=== PATIENT | male | born 1990 | race Hispanic/Latino ===

== ENCOUNTER 2023-03-20 09:43 | Inpatient (IN) | payer OTHER ==
[~2023-03-20 09:43] MED LIST: Iopamidol 300 61% 100 ML VIAL FS ONE
[2023-03-20 10:19] LABS: Hematocrit 33.1 % (38.8-50.0); Hemoglobin 11.1 g/dL (13.5-17.5); Mean Corpuscular HGB CONC 33.5 g/dL (32.0-36.0); Mean Corpuscular Volume 92.5 fl (81.2-95.1); Mean Platelet Volume 12.8 fl (7.4-10.4); Platelet Count 66 10x3/uL (150-450); RBC Distribution Width 17.5 % (11.5-14.5); Red Blood Cell (RBC) Count 3.58 10x6/uL (4.32-5.72)
[2023-03-20 10:20] LABS: MDiff Complete? YES
[2023-03-20 10:26] LABS: ALT (SGPT) 33 U/L (8-55); AST (SGOT) 49 U/L (5-34); Albumin 2.9 g/dL (3.5-5.0); Alkaline Phosphatase 266 U/L (40-110); Anion Gap 12 mmol/L (10-20); BUN (Urea Nitrogen) 11 mg/dL (8.9-20.6); Bilirubin, Total 3.6 mg/dL (0.2-1.2); Calc. Creatinine Clearance 0 mL/min (70-130); Calcium 8.1 mg/dL (7.8-10.44); Carbon Dioxide 23 mmol/L (22-29); Chloride 109 mmol/L (98-107); Estimated GFR 124; Globulin 3.6 g/dL (2.4-3.5); Glucose 133 mg/dL (70-105); Potassium 3.9 mmol/L (3.5-5.1); Protein, Total 6.5 g/dL (6.0-8.3); Sodium 140 mmol/L (136-145)
[2023-03-20 10:35] LABS: Troponin I 0.018 ng/mL (< 0.028)
[2023-03-20 10:37] LABS: Acetaminophen Less than 10 mcg/mL (10.0-30.0); Alcohol Less than 10.0 mg/dL (Less than 10); Magnesium 1.8 mg/dL (1.6-2.6); Salicylate Less than 8.0 mg/dL (15.0-30.0)
[2023-03-20 11:07] LABS: Platelet Adequacy Comment Appears Decreased
[2023-03-20 11:16] LABS: Lymphocytes 24 % (21-51); Monocytes 28 % (0-10); Neutrophil 32 % (42-75); Reactive Lymphocytes 16 % (0-10)
[2023-03-20 11:26] LABS: Target Cells SLIGHT = 2-5 cells (100X) (0-1/hpf)
[2023-03-20 11:27] LABS: Burr Cells SLIGHT = 2-5 cells (100X) (0-1/hpf); Giant Platelets SLIGHT HPF (0-5)
[2023-03-20 12:10] LABS: Bilirubin 1+ (Negative); Blood, Urine 150 (Negative); Clarity Clear (Clear); Glucose, Urine (Dipstick) Normal (Negative); Ketone, Urine Negative (Negative); Leukocyte Negative (Negative); Nitrite Negative (Negative); Protein, Urine (Dipstick) 15 mg/dl (Neg-Trace); Specific Gravity, Urine 1.015 (1.005-1.030)
[2023-03-20 12:17] LABS: Amphetamine Not Detected (NotDetected); Barbiturates Screen Not Detected (NotDetected); Benzodiazepine Screen Detected (NotDetected); Cocaine Metabolite Screen Not Detected (NotDetected); Methadone Not Detected (NotDetected); Methamphetamine Not Detected (NotDetected); Opiate Screen Not Detected (NotDetected); Oxycodone Screen Not Detected (NotDetected); Phencyclidine (PCP) Not Detected (NotDetected); THC/Cannabinoid Screen Not Detected (NotDetected); Tricyclic Screen Not Detected (NotDetected)
[2023-03-20 12:27] LABS: Bacteria/HPF 1+ HPF (None Seen); CAUTI Indications for Culture Pelvic or flank pain; Squamous Epithelial 0-3 HPF (0-3)
[2023-03-20 12:28] LABS: Transitional Epithelial 0-3 HPF (None Seen); Urine Culture Reflex No No
[2023-03-20] MEDS ORDERED: Lactulose 20 GM (30 mL) UDCUP ONE ×3 (14:47→22:54)
[2023-03-20 15:07] LABS: Troponin I Less than 0.010 ng/mL (< 0.028)
[2023-03-20] MEDS ORDERED: Ondansetron PF 4 MG/2 ML Vial IVP PRN (15:41)
[2023-03-20] MEDS ORDERED: Acetaminophen 650 MG Suppository PR PRN (15:41)
[2023-03-20] MEDS ORDERED: Thiamine HCl 200 MG/2 ML VIAL ONE (15:46)
[2023-03-20 16:47] LABS: INR-International Normal Ratio 1.7; PTT 37.9 sec (22.0-33.0); Prothrombin Time 17.9 sec (9.5-12.1)
[2023-03-20 16:54] LABS: Troponin I Less than 0.010 ng/mL (< 0.028)
[2023-03-20] MEDS ORDERED: Famotidine/PF 20 mg/2ml Vial ONE (22:51)
[2023-03-21] MEDS ORDERED: Famotidine/PF 20 mg/2ml Vial SLOW IVP SCH (00:15)
[2023-03-21] MEDS ORDERED: Lactulose 20 GM (30 mL) UDCUP PO SCH (00:15)
[2023-03-21] MEDS ORDERED: Rifaximin 200 MG TAB PO SCH (00:15)
[2023-03-21] MEDS: Sodium Chloride 0.9% 1,000 ML IV SCH ×2 (01:18→12:37)
[2023-03-21 04:49] LABS: ALT (SGPT) 29 U/L (8-55); AST (SGOT) 44 U/L (5-34); Albumin 2.8 g/dL (3.5-5.0); Alkaline Phosphatase 200 U/L (40-110); Anion Gap 12 mmol/L (10-20); BUN (Urea Nitrogen) 9 mg/dL (8.9-20.6); Bilirubin, Total 4.5 mg/dL (0.2-1.2); Calc. Creatinine Clearance 204 mL/min (70-130); Calcium 8.3 mg/dL (7.8-10.44); Carbon Dioxide 21 mmol/L (22-29); Chloride 112 mmol/L (98-107); Estimated GFR 127; Globulin 3.6 g/dL (2.4-3.5); Glucose 106 mg/dL (70-105); Iron 42 ug/dL (65-175); Iron Binding Capacity, Total 171 mcg/dL (261-462); Potassium 3.6 mmol/L (3.5-5.1); Protein, Total 6.4 g/dL (6.0-8.3); Sodium 141 mmol/L (136-145)
[2023-03-21 05:01] LABS: Hematocrit 33.7 % (38.8-50.0); Hemoglobin 11.3 g/dL (13.5-17.5); Mean Corpuscular HGB CONC 33.5 g/dL (32.0-36.0); Mean Corpuscular Hemoglobin 30.7 pg (27.0-33.0); Mean Corpuscular Volume 91.6 fl (81.2-95.1); Mean Platelet Volume 10.8 fl (7.4-10.4); RBC Distribution Width 17.3 % (11.5-14.5); Red Blood Cell (RBC) Count 3.68 10x6/uL (4.32-5.72); White Blood Cell (WBC) Count 1.9 10x3/uL (3.5-10.5)
[2023-03-21 05:07] LABS: Ferritin 63.12 ng/mL (22-322)
[2023-03-21 05:11] LABS: Iron 42 ug/dL (65-175); Iron Binding Capacity, Total 168 mcg/dL (261-462)
[2023-03-21 05:32] LABS: Platelet Count 60 10x3/uL (150-450)
[2023-03-21 05:41] LABS: Band 2 % (5-11); Eosinophils 4 % (0-10); Lymphocytes 32 % (21-51); Monocytes 24 % (0-10); Reactive Lymphocytes 14 % (0-10)
[2023-03-21 05:42] LABS: Neutrophil 24 % (42-75)
[2023-03-21 06:01] LABS: Anisocytosis SLIGHT = 6-15 cells (100X) (0-5/hpf); Poikilocytosis SLIGHT = 6-15 cells (100X) (0-5/hpf); Schistocytes SLIGHT = 2-5 cells (100X) (0-1/hpf); Tear Drops SLIGHT = 2-5 cells (100X) (0-1/hpf)
[2023-03-21 06:02] LABS: Platelet Adequacy Comment Significant decrease
[2023-03-21 06:03] LABS: MDiff Complete? YES
[2023-03-21] MEDS ORDERED: Famotidine/PF 20 mg/2ml Vial ONE (08:50)
[2023-03-21] MEDS ORDERED: Lactulose 20 GM (30 mL) UDCUP ONE (08:53)
[2023-03-21] MEDS: Famotidine/PF 20 mg/2ml Vial SLOW IVP SCH ×2 (09:20→22:47)
[2023-03-21] MEDS: Lactulose 20 GM (30 mL) UDCUP PO SCH ×3 (09:20→22:46)
[2023-03-21] MEDS: Rifaximin 200 MG TAB PO SCH (09:21)
[2023-03-21 13:35] LABS: Immunoglob - G (Total IgG) 2260 mg/dL (540-1822)
[2023-03-21 13:36] LABS: Immunoglob - A (Total IgA) 710 mg/dL (63-484); Immunoglob - M (Total IgM) 137 mg/dL (22-240)
[2023-03-21 13:48] LABS: HBCM Index 0.08 S/CO (0-0.79); Hep A IgM AB Non-Reactive S/CO (NonReactive); Hep A IgM S/CO 0.13 S/CO (0-0.79); Hep C IgG Ab Non-Reactive S/CO (NonReactive); Hep C Index 0.13 S/CO (0-0.79); Hepatitis B Core IgM Abs Non-Reactive S/CO (NonReactive)
[2023-03-21 16:40] LABS: HBSAg Index 0.23 S/CO (0-0.99); Hep B Surf Ag Non-Reactive S/CO (NonReactive)
[2023-03-21 20:00] VITALS: BMI 28.7
[2023-03-21] MEDS ORDERED: FLU VACC QS2023-24(6MOS UP)/PF 60 MCG/0.5 ML SYRINGE IM ONE (20:15)
[2023-03-22] MEDS: Rifaximin 200 MG TAB PO SCH ×3 (00:51→21:39)
[2023-03-22] MEDS: Sodium Chloride 0.9% 1,000 ML IV SCH (00:52)
[2023-03-22 04:39] LABS: ALT (SGPT) 27 U/L (8-55); AST (SGOT) 47 U/L (5-34); Albumin 2.4 g/dL (3.5-5.0); Alkaline Phosphatase 144 U/L (40-110); Anion Gap 9 mmol/L (10-20); BUN (Urea Nitrogen) 7 mg/dL (8.9-20.6); Bilirubin, Total 3.3 mg/dL (0.2-1.2); Calc. Creatinine Clearance 190 mL/min (70-130); Calcium 7.7 mg/dL (7.8-10.44); Carbon Dioxide 22 mmol/L (22-29); Chloride 113 mmol/L (98-107); Estimated GFR 124; Globulin 2.8 g/dL (2.4-3.5); Glucose 92 mg/dL (70-105); Potassium 3.4 mmol/L (3.5-5.1); Protein, Total 5.2 g/dL (6.0-8.3); Sodium 141 mmol/L (136-145)
[2023-03-22 04:40] LABS: Platelet Count 58 10x3/uL (150-450)
[2023-03-22 04:41] LABS: #Eosinphils 0.1 10x3/uL (0.0-0.5); #Monocytes 0.6 10x3/uL (0.0-1.1); #Neutrophils 0.5 10x3/uL (1.5-8.4); %Basophils 1.9 % (0.0-2.0); %Eosinophils 3.3 % (0.0-6.0); %Lymphocytes 44.8 % (18.0-47.0); %Monocytes 27.1 % (0.0-10.0); %Neutrophils 22.9 % (40.0-75.0); Hematocrit 29.6 % (38.8-50.0); Hemoglobin 9.9 g/dL (13.5-17.5); Mean Corpuscular HGB CONC 33.4 g/dL (32.0-36.0); Mean Corpuscular Hemoglobin 30.9 pg (27.0-33.0); Mean Corpuscular Volume 92.5 fl (81.2-95.1); Mean Platelet Volume 11.8 fl (7.4-10.4); White Blood Cell (WBC) Count 2.1 10x3/uL (3.5-10.5)
[2023-03-22 05:14] LABS: INR-International Normal Ratio 1.9; Prothrombin Time 20.2 sec (9.5-12.1)
[2023-03-22] MEDS: Famotidine/PF 20 mg/2ml Vial SLOW IVP SCH (08:42)
[2023-03-22] MEDS: Lactulose 20 GM (30 mL) UDCUP PO SCH ×3 (08:42→21:39)
[2023-03-23 04:17] LABS: ALT (SGPT) 33 U/L (8-55); AST (SGOT) 60 U/L (5-34); Albumin 2.6 g/dL (3.5-5.0); Alkaline Phosphatase 161 U/L (40-110); Anion Gap 8 mmol/L (10-20); BUN (Urea Nitrogen) 6 mg/dL (8.9-20.6); Bilirubin, Total 3.5 mg/dL (0.2-1.2); Calc. Creatinine Clearance 195 mL/min (70-130); Calcium 8.4 mg/dL (7.8-10.44); Carbon Dioxide 25 mmol/L (22-29); Chloride 107 mmol/L (98-107); Estimated GFR 126; Globulin 3.3 g/dL (2.4-3.5); Glucose 112 mg/dL (70-105); Potassium 3.4 mmol/L (3.5-5.1); Protein, Total 5.9 g/dL (6.0-8.3); Sodium 137 mmol/L (136-145)
[2023-03-23 04:24] LABS: INR-International Normal Ratio 1.8
[2023-03-23 04:39] LABS: Hematocrit 32.1 % (38.8-50.0); Hemoglobin 10.7 g/dL (13.5-17.5); Mean Corpuscular HGB CONC 33.3 g/dL (32.0-36.0); Mean Corpuscular Hemoglobin 30.7 pg (27.0-33.0); Mean Platelet Volume 11.3 fl (7.4-10.4); Platelet Count 55 10x3/uL (150-450); RBC Distribution Width 16.8 % (11.5-14.5); Red Blood Cell (RBC) Count 3.49 10x6/uL (4.32-5.72); White Blood Cell (WBC) Count 2.1 10x3/uL (3.5-10.5)
[2023-03-23 05:13] LABS: Eosinophils 3 % (0-10); Lymphocytes 43 % (21-51); Monocytes 20 % (0-10); Neutrophil 34 % (42-75)
[2023-03-23 05:14] LABS: MDiff Complete? YES; Ovalocytes MODERATE= 6-15 cells (100X) (0-1/hpf); Platelet Adequacy Comment Appears Decreased
[2023-03-23] MEDS: Rifaximin 200 MG TAB PO SCH (09:18)
[2023-03-23] MEDS: Lactulose 20 GM (30 mL) UDCUP PO SCH (09:18)
[2023-03-23 10:14] LABS: Alpha-1-Antitrypsin 81 mg/dL (95-164)
[2023-03-23 10:46] VITALS: TEMP 97.9
[2023-03-23 12:58] VITALS: BP 68/65
[2023-03-23 14:15] LABS: Smooth Muscle Total ABS 24 Units (0-19)
[2023-03-24 11:59] LABS: ANA Symphony (Qualitative) Negative (Negative); ANA Symphony (Quantitative) 0.2 Ratio (< 0.7 Negative); EliA Vaculitis New Method **** NEW METHOD ****; Mitochondrial Ab 0.5 U/mL (<4 Negative); dsDNA IgG Antibody 1.8 IU/mL (<10 Negative)
== END 2023-03-23 12:05 | disposition home or self-care (01) | DRG 442 ==
LOC: CSHERS 09:43 → CSHERHOLD 14:42 → CSHTELE 03-21 13:44
PROVIDERS: ADMIT Internal Medicine; ATTEND Internal Medicine
DX: K76.82 Hepatic encephalopathy (principal); D61.818 Other pancytopenia; K76.6 Portal hypertension; I85.10 Secondary esophageal varices without bleeding; D68.9 Coagulation defect, unspecified; F19.10 Other psychoactive substance abuse, uncomplicated; K74.60 Unspecified cirrhosis of liver; N20.0 Calculus of kidney; I86.4 Gastric varices; Z88.0 Allergy status to penicillin; Z87.820 Personal history of traumatic brain injury
CPT/HCPCS: 36415; 70450; 74177; 80053; 80074; 80306; 80307; 81001; 82103; 82105; 82140; 82390; 82728; 83516; 83540; 83550; 83735; 84443; 84484; 85025; 85610; 85730; 86015; 86038; 86225; 87798; 93005; 96361; 96372; 96374; J3411; J7050; Q9967; S0028